=== PATIENT | female | born 1995 | race African-American/Black ===

== ENCOUNTER 2020-06-12 14:50 | Observation (INO) | payer MEDICAID ==
[~2020-06-12] VITALS: Ht 162.6 cm; Wt 60.8 kg
[2020-06-12] MEDS ORDERED: TERBUTALINE SULFATE 1MG/ML VIAL SUBCUT PRN (15:15)
[2020-06-12] MEDS: LACTATED RINGERS 1,000 ML IV SCH ×3 (15:35→18:29)
[2020-06-12 17:50] LABS: CLARITY URINE CLEAR (CLEAR); COLOR URINE YELLOW (YELLOW); KETONES URINE 1+ (NEGATIVE); LEUKOCYTE ESTERASE URINE 2+ (NEGATIVE); NITRITE URINE NEGATIVE (NEGATIVE); OCCULT BLOOD URINE NEGATIVE (NEGATIVE); PH URINE 6.5 (4.5-8.0); PROTEIN URINE NEGATIVE (NEGATIVE); SPECIFIC GRAVITY URINE 1.006 (1.005-1.030); UROBILINOGEN URINE 0.2 E.U./dL (0.2-1.0)
[2020-06-12] MEDS ORDERED: ACETAMINOPHEN 325MG TABLET PO NR (19:45)
== END 2020-06-12 20:15 | disposition home or self-care (01) ==
LOC: 8 EST LDRP 14:50
PROVIDERS: ADMIT Obstetrics & Gynecology; ATTEND Obstetrics & Gynecology
DX: O62.9 Abnormality of forces of labor, unspecified (principal); Z3A.32 32 weeks gestation of pregnancy
CPT/HCPCS: 59025; 76805; 76818; 81003; 96360; 96361; 96372; 99281; G0378; J3105; 59412

== ENCOUNTER 2021-05-21 13:35 | Emergency (ER) | payer MEDICAID ==
[~2021-05-21] VITALS: Ht 162.6 cm; Wt 52.0 kg
[2021-05-21] MEDS ORDERED: ACETAMINOPHEN 325MG TABLET PO PRN (13:45)
[2021-05-21 14:37] LABS: CLARITY URINE CLOUDY (CLEAR); COLOR URINE YELLOW (YELLOW); KETONES URINE TRACE (NEGATIVE); LEUKOCYTE ESTERASE URINE 1+ (NEGATIVE); NITRITE URINE NEGATIVE (NEGATIVE); OCCULT BLOOD URINE NEGATIVE (NEGATIVE); PROTEIN URINE TRACE (NEGATIVE); SPECIFIC GRAVITY URINE 1.027 (1.005-1.030)
[2021-05-21 16:12] LABS: BASOPHILS % 1.1 % (0.0-2.0); EOSINOPHILS % 1.2 % (0.0-5.0); HEMATOCRIT. 31.9 % (36.0-48.0); HEMOGLOBIN. 10.5 g/dL (12.0-16.0); LYMPHOCYTES % 23.2 % (20.0-50.0); MEAN CORPUSCULAR VOLUME 82.3 fL (81.0-99.0); MEAN PLATELET VOLUME 8.5 fl (7.4-10.4); MONOCYTES % 8.1 % (2.0-8.0); NEUTROPHILS % 66.4 % (40.0-76.0); PLATELET 266 x1000/uL (130-400); RED BLOOD CELL COUNT 3.87 mill/uL (4.2-5.4); RED CELL DISTRIBUTION WIDTH 18.2 % (11.6-14.6)
[2021-05-21 16:19] LABS: CHLORIDE 107 mEq/L (98-107)
[2021-05-21 16:42] LABS: B-HCG QUANTITATIVE 66400 mIU/mL (<3)
[2021-05-21] MEDS ORDERED: CEPH500C2 MT (18:03)
[2021-05-21] MEDS ORDERED: PREN1CAP28 MT (18:12)
[2021-05-21 18:33] VITALS: BP 127/67
== END 2021-05-21 18:36 | disposition home or self-care (01) ==
LOC: ER 13:35
DX: O26.891 Other specified pregnancy related conditions, first trimester (principal); O20.0 Threatened abortion; O23.41 Unspecified infection of urinary tract in pregnancy, first trimester; N39.0 Urinary tract infection, site not specified; E87.6 Hypokalemia; Z3A.01 Less than 8 weeks gestation of pregnancy; Z91.013 Allergy to seafood; Z91.018 Allergy to other foods
CPT/HCPCS: 36415; 76801; 80053; 81003; 81025; 84702; 85025; 86850; 86900; 99284

== ENCOUNTER 2021-07-07 23:03 | Inpatient (IN) | payer MEDICAID ==
[~2021-07-07] VITALS: Ht 165.1 cm; Wt 49.9 kg
[~2021-07-07 23:03] MED LIST: CEPH500C2 MT; PREN1CAP28 MT
[2021-07-08 01:11] LABS: CLARITY URINE CLOUDY (CLEAR); COLOR URINE RED (YELLOW); KETONES URINE NEGATIVE (NEGATIVE); LEUKOCYTE ESTERASE URINE 1+ (NEGATIVE); NITRITE URINE NEGATIVE (NEGATIVE); OCCULT BLOOD URINE 3+ (NEGATIVE); PH URINE 5.5 (4.5-8.0); PROTEIN URINE 2+ (NEGATIVE); SPECIFIC GRAVITY URINE 1.008 (1.005-1.030); UROBILINOGEN URINE 0.2 E.U./dL (0.2-1.0)
[2021-07-08] MEDS: LACTATED RINGERS 1,000 ML IV SCH ×3 (01:11→05:02)
[2021-07-08 01:15] LABS: BASOPHILS % 0.9 % (0.0-2.0); EOSINOPHILS % 2.5 % (0.0-5.0); HEMATOCRIT. 28.7 % (36.0-48.0); HEMOGLOBIN. 9.3 g/dL (12.0-16.0); LYMPHOCYTES % 16.5 % (20.0-50.0); MEAN CORPUSCULAR HEMOGLOBIN 27.4 pg (28.0-32.0); MEAN CORPUSCULAR VOLUME 84.3 fL (81.0-99.0); MEAN PLATELET VOLUME 7.9 fl (7.4-10.4); MONOCYTES % 5.9 % (2.0-8.0); NEUTROPHILS % 74.2 % (40.0-76.0); PLATELET 311 x1000/uL (130-400); RED CELL DISTRIBUTION WIDTH 18.3 % (11.6-14.6)
[2021-07-08 01:18] LABS: CHLORIDE 108 mEq/L (98-107)
[2021-07-08 01:40] LABS: B-HCG QUANTITATIVE 1084 mIU/mL (<3)
[2021-07-08] MEDS ORDERED: ACETAMINOPHEN 325MG TABLET PO ONE (01:45)
[2021-07-08] MEDS ORDERED: ONDANSETRON HCL 4MG/2ML INJ IV PRN ×2 (05:30→14:12)
[2021-07-08] MEDS ORDERED: MORPHINE SULFATE 2 MG/ML CPJ (NOT FOR IM USE) IV SCH (05:30)
[2021-07-08] MEDS ORDERED: LACTATED RINGERS 1,000 ML IV SCH (05:30)
[2021-07-08] MEDS ORDERED: NALOXONE HCL 0.4 MG/ML 1ML VIAL IV PRN (05:45)
[2021-07-08 09:00] VITALS: BP 98/59
[2021-07-08 12:00] VITALS: BP 105/63
[2021-07-08] MEDS ORDERED: FENTANYL CITRATE/PF 50MCG/ML 2ML VIAL ONE (13:05)
[2021-07-08] MEDS ORDERED: MIDAZOLAM HCL 2 MG/2 ML VIAL ONE (13:05)
[2021-07-08] MEDS ORDERED: PROPOFOL 200MG/20ML VIAL IV ONE ×2 (13:06→14:26)
[2021-07-08] MEDS ORDERED: LIDOCAINE HCL 1% 10 MG/ML 10ML VIAL ONE (13:06)
[2021-07-08] MEDS ORDERED: KETOROLAC 30MG/ML VIAL ONE (14:12)
[2021-07-08] MEDS ORDERED: ONDANSETRON HCL 4MG/2ML INJ ONE (14:12)
[2021-07-08] MEDS ORDERED: IBUP-2030 MT (14:29)
[2021-07-08] MEDS ORDERED: HYDROMORPHONE HCL/PF 2MG/ML CPJ IV PRN (14:45)
[2021-07-08 17:55] VITALS: BP 96/62
== END 2021-07-08 18:40 | disposition home or self-care (01) | DRG 543 ==
LOC: ER 23:26 → 6EST 07-08 03:29 → ENRESERV 07-08 08:23
PROVIDERS: ADMIT Obstetrics & Gynecology; ATTEND Obstetrics & Gynecology
PROC: 10D17ZZ Extraction of Products of Conception, Retained, Via Natural or Artificial Opening (ICD-10-PCS; principal; 2021-07-08)
DX: O03.4 Incomplete spontaneous abortion without complication (principal); Z20.822 Contact with and (suspected) exposure to COVID-19; Z79.899 Other long term (current) drug therapy; Z91.013 Allergy to seafood; Z91.018 Allergy to other foods
CPT/HCPCS: 36415; 76830; 76856; 80053; 81003; 84702; 85025; 86850; 86900; 87426; 88305; 99285; J1885; J2250; J2270; J2405; J2704; J3010; J3490; J7040

== ENCOUNTER 2022-06-07 21:12 | Observation (INO) | payer MEDICAID ==
[~2022-06-07] VITALS: Ht 165.1 cm; Wt 67.1 kg
[~2022-06-07 21:12] MED LIST changes: +IBUP-2030 MT
[2022-06-07] MEDS: LACTATED RINGERS 1,000 ML IV SCH (22:16)
[2022-06-07 23:12] LABS: CLARITY URINE CLEAR (CLEAR); COLOR URINE YELLOW (YELLOW); KETONES URINE NEGATIVE (NEGATIVE); LEUKOCYTE ESTERASE URINE 3+ (NEGATIVE); NITRITE URINE NEGATIVE (NEGATIVE); OCCULT BLOOD URINE 2+ (NEGATIVE); PH URINE 7.5 (4.5-8.0); PROTEIN URINE NEGATIVE (NEGATIVE); SPECIFIC GRAVITY URINE 1.013 (1.005-1.030); UROBILINOGEN URINE 0.2 E.U./dL (0.2-1.0)
[2022-06-08] MEDS ORDERED: TERBUTALINE SULFATE 1MG/ML VIAL SUBCUT ONE (02:15)
[2022-06-08] MEDS ORDERED: METRONIDAZOLE 250MG TABLET PO NR (02:15)
[2022-06-08] MEDS: LACTATED RINGERS 1,000 ML IV SCH (02:25)
== END 2022-06-08 06:15 | disposition home or self-care (01) ==
LOC: 8 EST LDRP 21:12
PROVIDERS: ADMIT Obstetrics & Gynecology; ATTEND Obstetrics & Gynecology
DX: O26.893 Other specified pregnancy related conditions, third trimester (principal); R10.30 Lower abdominal pain, unspecified; O62.9 Abnormality of forces of labor, unspecified; Z3A.35 35 weeks gestation of pregnancy
CPT/HCPCS: 59025; 76805; 76818; 81003; 96360; 96361; 96372; G0378; J3105; 99281

== ENCOUNTER 2022-06-16 10:28 | Observation (INO) | payer MEDICAID ==
[~2022-06-16] VITALS: Ht 165.1 cm; Wt 66.7 kg
[2022-06-16] MEDS: LACTATED RINGERS 1,000 ML IV SCH ×2 (11:30→12:44)
[2022-06-16 11:59] LABS: BASOPHILS % 0.7 % (0.0-2.0); EOSINOPHILS % 0.6 % (0.0-5.0); HEMATOCRIT. 30.5 % (36.0-48.0); HEMOGLOBIN. 9.7 g/dL (12.0-16.0); LYMPHOCYTES % 20.3 % (20.0-50.0); MEAN CORPUSCULAR HEMOGLOBIN 25.4 pg (28.0-32.0); MEAN CORPUSCULAR VOLUME 79.5 fL (81.0-99.0); MEAN PLATELET VOLUME 8.4 fl (7.4-10.4); MONOCYTES % 8.4 % (2.0-8.0); PLATELET 299 x1000/uL (130-400); RED BLOOD CELL COUNT 3.83 mill/uL (4.2-5.4); RED CELL DISTRIBUTION WIDTH 19.7 % (11.6-14.6)
== END 2022-06-16 16:00 | disposition home or self-care (01) ==
LOC: 8 EST LDRP 10:28
PROVIDERS: ADMIT Obstetrics & Gynecology; ATTEND Obstetrics & Gynecology
DX: O26.893 Other specified pregnancy related conditions, third trimester (principal); R10.30 Lower abdominal pain, unspecified; O62.9 Abnormality of forces of labor, unspecified; Z3A.36 36 weeks gestation of pregnancy; V49.9XXA Car occupant (driver) (passenger) injured in unspecified traffic accident, initial encounter; Y93.89 Activity, other specified; Y92.89 Other specified places as the place of occurrence of the external cause
CPT/HCPCS: 36415; 59025; 76805; 76818; 85025; 96360; 96361; G0378; J7120; 99281; G0379

== ENCOUNTER 2024-03-17 08:53 | Emergency (ER) | payer MEDICAID ==
[~2024-03-17] VITALS: Ht 165.1 cm; Wt 65.7 kg
[2024-03-17 09:00] VITALS: O2SAT 100
[2024-03-17] MEDS: ACETAMINOPHEN 325MG TABLET PO ONE (09:40)
[2024-03-17] MEDS: ONDANSETRON 4MG ODT PO ONE (09:40)
[2024-03-17 10:14] LABS: BASOPHILS % 0.8 % (0.0-2.0); EOSINOPHILS % 2.8 % (0.0-5.0); HEMATOCRIT. 29.8 % (36.0-48.0); HEMOGLOBIN. 9.9 g/dL (12.0-16.0); LYMPHOCYTES % 17.2 % (20.0-50.0); MEAN CORPUSCULAR HEMOGLOBIN 26.9 pg (28.0-32.0); MEAN CORPUSCULAR HGB CONC 33.1 g/dL (31.0-37.0); MEAN CORPUSCULAR VOLUME 81.1 fL (81.0-99.0); MEAN PLATELET VOLUME 8.1 fl (7.4-10.4); MONOCYTES % 8.8 % (2.0-8.0); NEUTROPHILS % 70.4 % (40.0-76.0); PLATELET 296 x1000/uL (130-400); RED BLOOD CELL COUNT 3.67 mill/uL (4.2-5.4); RED CELL DISTRIBUTION WIDTH 16.9 % (11.6-14.6); WHITE BLOOD COUNT 6.2 x1000/uL (4.5-11.0)
[2024-03-17 10:25] LABS: CHLORIDE 108 mEq/L (98-107); INR 0.9; PARTIAL THROMBOPLASTIN TIME 23.9 sec (23.4-31.0); POTASSIUM 3.5 mEq/L (3.5-5.1); PROTHROMBIN TIME 9.9 sec (9.6-11.0); SODIUM 137 mEq/L (136-145)
[2024-03-17 10:26] LABS: CALCIUM 8.9 mg/dL (8.7-10.4); CARBON DIOXIDE 23 mEq/L (21-32)
[2024-03-17 10:31] LABS: CREATININE 0.7 mg/dL (0.6-1.0); GLUCOSE 79 mg/dL (70-105); UREA NITROGEN BLOOD 5 mg/dL (9-23)
[2024-03-17 10:33] LABS: ALANINE AMINOTRANSFERASE 8 IU/L (10-49); ASPARTATE AMINOTRANSFERASE 18 IU/L (<34); BILIRUBIN TOTAL 0.5 mg/dL (0.1-1.0); PROTEIN TOTAL 7.2 g/dL (6.0-8.3)
[2024-03-17 11:20] VITALS: BP 100/63; PULSE 67; RESP 16; TEMP 36.66960; O2SAT 99
== END 2024-03-17 11:24 | disposition home or self-care (01) ==
LOC: ER 08:53
DX: O20.9 Hemorrhage in early pregnancy, unspecified (principal); O26.892 Other specified pregnancy related conditions, second trimester; Z3A.19 19 weeks gestation of pregnancy
CPT/HCPCS: 80053; 85025; 85610; 85730; 86900; 86901; 86706; 86592; 86593; 36415; 76805; 99284; Q0162; Z7610 ×3

== ENCOUNTER 2024-07-01 13:39 | Emergency (ER) | payer MEDICAID | END 2024-07-01 14:55 | disposition left against medical advice (07) | LOC: ER 13:39 | DX: R05.9 Cough, unspecified (principal); Z53.21 Procedure and treatment not carried out due to patient leaving prior to being seen by health care provider ==